=== PATIENT | female | born 1985 | race Asian ===

== ENCOUNTER 2019-04-20 12:52 | Inpatient (IN) | payer BC, OTHER ==
[~2019-04-20] VITALS: Ht 172.7 cm; Wt 58.8 kg
[2019-04-20] MEDS ORDERED: NALOXONE HCL 1MG/ML 2ML SYRINGE ONE ×2 (12:55)
[2019-04-20] MEDS ORDERED: ETOMIDATE (2MG/ML) 20ML VIAL IV ONE (12:57)
[2019-04-20] MEDS ORDERED: SUCCINYLCHOLINE CHLORIDE 20 MG/ML 10ML VIAL IV ONE (12:57)
[2019-04-20] MEDS ORDERED: SODIUM CHLORIDE 0.9% 1,000 ML IVB ONE (12:59)
[2019-04-20] MEDS ORDERED: NALOXONE HCL 1MG/ML 2ML SYRINGE IV ONE (13:15)
[2019-04-20 13:26] LABS: Basophils # (auto) 0.1 uL; Basophils % (auto) 0.9 % (0.0-2.0); Eosinophils # (auto) 0.4 uL; Eosinophils % (auto) 5.9 % (0.0-7.0); Hematocrit 38.5 % (36.0-46.0); Hemoglobin 13.3 g/dL (12.2-16.2); Lymphocytes # (auto) 1.3 uL; Lymphocytes % (auto) 22.4 % (10.0-50.0); Mean Corpuscular Hgb Conc. 34.6 g/dL (32.0-36.0); Mean Corpuscular Volume 92.4 fL (80.0-100.0); Monocytes # (auto) 0.8 uL; Monocytes % (auto) 13.6 % (0.0-12.0); Neutrophils # (auto) 3.4 uL; Neutrophils % (auto) 57.2 % (37.0-80.0); Platelet Count (auto) 194 10^3/uL (140-450); Red Blood Cells 4.16 10^6/uL (4.0-5.20); Red Cell Distribution Width 12.7 % (11.8-14.3)
[2019-04-20 13:34] LABS: Urine WBC None Seen /hpf (0 - 5)
[2019-04-20 13:50] LABS: Albumin 3.6 g/dL (3.4-5.0); Anion Gap 6 (5-15); Blood Alcohol < 3.0 mg/dL (0-5); Blood Urea Nitrogen 11 mg/dL (7-18); Calcium 9.2 mg/dL (8.5-10.1); Carbon Dioxide 27 mmol/L (21-32); Chloride 106 mmol/L (98-107); Glucose 95 mg/dL (74-106); Magnesium 2.1 mg/dL (1.6-2.6); Potassium 3.5 mmol/L (3.5-5.1); Sodium 139 mmol/L (136-145)
[2019-04-20 13:52] LABS: Urine Bacteria NONE SEEN /hpf (None Seen); Urine Blood Negative /uL (Negative); Urine Mucus FEW (None Seen); Urine Specific Gravity 1.011 (1.001-1.035)
[2019-04-20 13:54] LABS: Alanine Aminotransferase 19 U/L (13-56); Alkaline Phosphatase 56 U/L (45-117); Aspartate Aminotransferase 15 U/L (15-37); BUN/Creatinine Ratio 15.1; Bilirubin, Total 0.5 mg/dL (0.2-1.0); GFR African American 118 mL/min; GFR Non-African American 98 mL/min; Total Protein 6.9 g/dL (6.4-8.2)
[2019-04-20 14:02] LABS: Alcohol, Urine < 3.0 mg/dL (0-5); Amphetamine Screen, Urine NEGATIVE (NEGATIVE); Barbiturate Scree,Urine NEGATIVE (NEGATIVE); Benzodiazephine Screen, Urine NEGATIVE (NEGATIVE); Cannabinoid Screen, Urine NEGATIVE (NEGATIVE); Cocaine Screen, Urine POSITIVE (NEGATIVE); Opiate Scree,Urine NEGATIVE (NEGATIVE); Phencyclidine Screen, Urine NEGATIVE (NEGATIVE)
[2019-04-20] MEDS ORDERED: PROMETHAZINE HCL 25 MG/ML 1ML IV PRN (16:00)
[2019-04-20] MEDS ORDERED: MORPHINE SULF INJ 2 MG/ML SYRINGE 1ML IV PRN (16:00)
[2019-04-20] MEDS ORDERED: ACETAMINOPHEN 500 MG TAB PO PRN (16:00)
[2019-04-20] MEDS ORDERED: LACTULOSE 20Gm/30ML SOLN PO PRN (16:00)
[2019-04-20] MEDS ORDERED: traMADol HCL 50 MG TAB PO PRN (16:00)
[2019-04-20] MEDS ORDERED: NITROGLYCERIN 0.4 MG SL TAB SL PRN (16:00)
[2019-04-20] MEDS: SODIUM CHLORIDE 0.9% 1,000 ML IV SCH (16:46)
[2019-04-20 17:02] LABS: Acetaminophen < 2.0 ug/mL (10-30); Salicylate < 1.7 mg/dL (2.8-20.0)
--- NOTE | 2019-04-20 17:40 | NUR ---
Telemetry admit from ER KULWANT GREENE admitted to Telemetry unit after SBAR received. Patient oriented to HODAN TRAYLOR RN primary RN, unit, room, bed, and unit policies regarding patient care and visiting hours. Patient now on continuous telemetry monitoring, tele box #26 and telemetry reading on arrival to unit is sinus rhythm. Patient placed on bedside oxygen, weighed by bedscale and encouraged to call if they need something. All questions and concerns addressed, patient verbalized understanding. Sitter at bedside for safety.
[2019-04-20 18:16] VITALS: BP 106/62
--- NOTE | 2019-04-20 19:12 | NUR ---
Closing Shift Note Patient resting in bed. No distress noted. Will endorse care to the project development leader RN.
[2019-04-20 20:10] VITALS: BP 106/62
--- NOTE | 2019-04-20 20:10 | NUR ---
Opening Shift Note Assumed care of patient, awake and alert. No S/S of distress/SOB or pain. Respirations even and unlabored. Patient is on room air. Connor hanging below level of bladder, is patent, and draining clear, yellow urine. Instructed on POC and to call for assist PRN, will continue to monitor for changes Q1hr and PRN.
--- NOTE | 2019-04-20 21:26 | NUR ---
RECEIVED CALL FROM TOMASA FROM POISON CONTROL AT THIS TIME FOR STATUS UPDATE ON PATIENT. TOMASA STATES HE WILL CALL AGAIN TOMORROW.
[2019-04-20 22:00] VITALS: BP 103/60
[2019-04-21] MEDS: SODIUM CHLORIDE 0.9% 1,000 ML IV SCH (02:03)
--- NOTE | 2019-04-21 04:40 | NUR ---
IV REMOVAL DUE TO PATIENT COMPLAINT OF SORENESS IN LEFT WRIST AND PRESENCE OF BLEEDING IV DC'd with clean sterile technique, catheter fully intact. Pressure dressing applied to site. Heating pack applied to site. Patient tolerated well.
[2019-04-21 05:00] VITALS: BP 92/58
--- NOTE | 2019-04-21 07:00 | NUR ---
CLOSING NOTE Patient has no S/S of distress/SOB or pain. Respirations even and unlabored. Patient is on room air. Connor hanging below level of bladder, is patent, and draining clear, yellow urine.
--- NOTE | 2019-04-21 08:00 | NUR ---
Opening Shift Note Assumed care of patient, awake, alert but drowsy and oriented X4. No S/S of distress/SOB or pain. Tele# 26, sinus rhythm @ 64 bpm. IV to right antecubital, 20 gauge, patent and infusing 0.9% NS @ 100 ml/hr. Urethral Connor catheter draining clear, straw urine to gravity. Instructed on POC and to call for assist PRN, verbalized understanding. Bed locked, in lowest position, call light within reach, safety representative remains at bedside for patient safety, will continue to monitor for changes Q1hr and PRN.
--- NOTE | 2019-04-21 08:15 | NUR ---
POISON CONTROL Call received from [place]on with poison control. All requested information provided. Per Weston, they will sign off on patient at this time.
[2019-04-21 09:00] VITALS: BP 93/52
--- NOTE | 2019-04-21 10:05 | NUR ---
ROUNDS Dr Caceres at bedside for rounds. New orders received and followed through. Patient educated in length on the risks and benefits of recreation drug use and abuse and the importance of stopping use, verbalized understanding. Patient verbalized she has no intention at this time or any previous time of harming herself or others. Patient verbalized she has a safe living environment with her and will return to this environment.
[2019-04-21 13:00] VITALS: BP 95/59
[2019-04-21 15:10] VITALS: BP 93/56
[2019-04-21 16:58] VITALS: BP 103/62
== END 2019-04-21 17:45 | disposition home or self-care (01) | DRG 917 ==
LOC: EDBD 12:52 → ER 13:05 → TELE 13:06 → TELE-CENTR 19:08
PROVIDERS: ADMIT Internal Medicine; ATTEND Internal Medicine
DX: T43.021A Poisoning by tetracyclic antidepressants, accidental (unintentional), initial encounter (principal); G92 Toxic encephalopathy; F10.10 Alcohol abuse, uncomplicated; F14.10 Cocaine abuse, uncomplicated; F17.210 Nicotine dependence, cigarettes, uncomplicated; J45.909 Unspecified asthma, uncomplicated; F32.9 Major depressive disorder, single episode, unspecified; F41.9 Anxiety disorder, unspecified; R94.31 Abnormal electrocardiogram [ECG] [EKG]; T43.591A Poisoning by other antipsychotics and neuroleptics, accidental (unintentional), initial encounter; Y92.89 Other specified places as the place of occurrence of the external cause; Z79.899 Other long term (current) drug therapy; Y90.9 Presence of alcohol in blood, level not specified
CPT/HCPCS: 36415; 70450; 71045; 80053; 80307; 80320; 80329; 81001; 81025; 83735; 85025; 93005; 96361; 96374; 99291; G0378; J0330